=== PATIENT | male | born 1955 | race Caucasian/White ===

== ENCOUNTER 2017-08-01 18:05 | Inpatient (IN) ==
[2017-08-01 19:03] LABS: Basophils # 0.1 10*3/uL (0.0-0.2); Basophils % 0.4 % (0.0-0.8); Eosinophils % 0.1 % (0.00-10.9); Hematocrit 53.2 VOL% (42.0-52.0); Hemoglobin 17.2 GM/DL (14.0-18.0); Immature Granulocytes % 0.6 %; Immature Granulocytes Absolute 0.12 #; Lymphocytes # 1.7 10*3/uL (1.4-4.0); Lymphocytes % 8.7 % (21.2-54.2); Mean Corpuscular HGB Conc 32.3 GM/DL (32-36); Mean Corpuscular Hemoglobin 35 PG (27-34); Mean Corpuscular Volume 107.3 FL (87-102); Mean Platelet Volume 11.3 FL (9.6-12.0); Monocytes # 1.2 10*3/uL (0.11-0.8); Monocytes % 6.2 % (1.7-12.7); Neutrophils # 15.9 10*3/uL (1.4-7.4); Platelet Count 187 T/CUMM (130-400); Red Blood Count 4.96 MC/CUMM (3.8-5.5); Red Cell Distribution Width 13.1 % (9.3-17.3)
[2017-08-01 19:31] LABS: Albumin 3.8 G/DL (3.4-5.0); Bilirubin,Total 0.6 MG/DL (0.2-1.0); Calcium 9.6 MG/DL (8.5-10.1); Osmolality,Calculated 274.1 MOS/KG (273-304); Potassium 4.4 MMOL/L (3.5-5.1); Total Protein 7.7 G/DL (6.4-8.3)
[2017-08-01 20:21] LABS: Apearance,Urine CLEAR (Clear); Bacteria,Urine Occasional /HPF (Few); Bilirubin,Urine Negative (Negative); Blood, Urine Negative (Negative); Glucose,Urine (UA) Negative (Negative); Ketones,Urine Negative (Negative); Nitrite,Urine Negative (Negative); Protein,Urine Negative; RBC,Urine <1 /HPF (0-4); Urine Color Colorless (Yellow); Urine Specific Gravity 1.003 (1.001-1.035); Urine Urobilinogen < 2.0 EU/DL (0.2-1.0); WBC,Urine <1 /HPF (0-6)
[2017-08-01] MEDS ORDERED: LORazepam 2 MG/1 ML VIAL ONE (20:45)
[2017-08-01] MEDS ORDERED: FUROSEMIDE 40 MG/4 ML VIAL IV STA (20:50)
[2017-08-01] MEDS ORDERED: levETIRAcetam 500 MG/5 ML VIAL IV ONE (20:53)
[2017-08-01] MEDS ORDERED: FUROSEMIDE 100 MG/10 ML VIAL ONE (20:54)
[2017-08-01] MEDS ORDERED: PROPOFOL 1,000 MG/100 ML BOTTLE IV ONE ×2 (21:00→23:41)
[2017-08-01 21:03] LABS: Lactic Acid 3.7 MMOL/L (0.4-2.0)
[2017-08-01] MEDS ORDERED: SODIUM CHLORIDE 0.9% 1,000 ML IV STA (21:06)
[2017-08-01 21:35] LABS: ABG Base Excess -6.3 MMOL/L (-2.5-2.5); ABG HCO3 22.9 MMOL/L (20-26); ABG PCO2 58.6 MM HG (35-48); ABG PO2 227.9 MM HG (80-95); ABG TCO2 24.7 MMOL/L (23-27); Allen Test Positive; Pt O2 Delivery Device Ventilator
[2017-08-01] MEDS ORDERED: MIDAZOLAM 10 MG/2 ML VIAL ONE (21:56)
[2017-08-01 21:58] LABS: Ammonia 27 UMOL/L (11-32)
[2017-08-01] MEDS ORDERED: VECURONIUM 10 MG VIAL IV STA (22:14)
[2017-08-01] MEDS: MIDAZOLAM 100 MG in SODIUM CHLORIDE 0.9% 80 ML IV SCH (22:22)
[2017-08-01] MEDS ORDERED: PROMETHAZINE 25 MG/1 ML VIAL IM PRN (22:30)
[2017-08-01] MEDS ORDERED: ONDANSETRON 4 MG/2 ML VIAL IV PRN (22:30)
[2017-08-01] MEDS ORDERED: ALBUTEROL 2.5 MG/3 ML NEB RESP TX PRN (22:30)
[2017-08-01] MEDS: PROPOFOL 1,000 MG/100 ML BOTTLE IV SCH (22:56)
[2017-08-01] MEDS: SODIUM CHLORIDE 0.9% 1,000 ML IV SCH (23:01)
[2017-08-02] MEDS ORDERED: VECURONIUM 10 MG VIAL IV ONE (00:02)
[2017-08-02] MEDS ORDERED: ETOMIDATE 20 MG/10 ML VIAL IV ONE (00:02)
[2017-08-02 00:09] LABS: Barbiturates Screen,Urine Negative (Negative); Benzodiazepines Screen,Urine Negative (Negative); Cannabinoid Screen,Urine Negative (Negative); Opiate Screen,Urine Negative (Negative); Phencyclidine Screen,Urine Negative (Negative)
[2017-08-02] MEDS: PANTOPRAZOLE 40 MG VIAL IV SCH ×2 (00:46→23:34)
[2017-08-02] MEDS: THIAMINE INJ 100 MG, FOLIC ACID INJ 1 MG, MULTIVITAMIN INJ 10 ML in SODIUM CHLORIDE 0.9... IV SCH ×2 (02:15→23:35)
[2017-08-02] MEDS: PROPOFOL 1,000 MG/100 ML BOTTLE IV SCH ×3 (03:18→23:34)
[2017-08-02 04:42] LABS: Allen Test Positive; Pt O2 Delivery Device Ventilator
[2017-08-02 04:43] LABS: ABG Base Excess -0.1 MMOL/L (-2.5-2.5); ABG HCO3 23.4 MMOL/L (20-26); ABG PCO2 35.2 MM HG (35-48); ABG PH 7.441 (7.35-7.45); ABG PO2 118.6 MM HG (80-95); ABG TCO2 24.5 MMOL/L (23-27)
[2017-08-02 04:44] LABS: ABG Oxygen Saturation 98.5 % (95-100)
[2017-08-02 05:12] LABS: Basophils % 0.1 % (0.0-0.8); Eosinophils % 0.1 % (0.00-10.9); Hematocrit 46.5 VOL% (42.0-52.0); Hemoglobin 15.9 GM/DL (14.0-18.0); Immature Granulocytes % 0.3 %; Immature Granulocytes Absolute 0.05 #; Lymphocytes % 13.5 % (21.2-54.2); Mean Corpuscular HGB Conc 34.2 GM/DL (32-36); Mean Corpuscular Hemoglobin 35 PG (27-34); Mean Platelet Volume 11.5 FL (9.6-12.0); Monocytes # 1.4 10*3/uL (0.11-0.8); Monocytes % 9.2 % (1.7-12.7); NRBC # 0.03 10*3/uL; Neutrophils # 11.5 10*3/uL (1.4-7.4); Neutrophils % 76.8 % (38.7-73.9); Platelet Count 161 T/CUMM (130-400); Red Blood Count 4.56 MC/CUMM (3.8-5.5); Red Cell Distribution Width 13.3 % (9.3-17.3); White Blood Count 14.9 T/CUMM (4-12)
[2017-08-02 05:43] LABS: Lactic Acid 1.2 MMOL/L (0.4-2.0)
[2017-08-02 06:09] LABS: Albumin 3.5 G/DL (3.4-5.0); Calcium 8.6 MG/DL (8.5-10.1); Osmolality,Calculated 277.8 MOS/KG (273-304); Total Protein 6.3 G/DL (6.4-8.3)
[2017-08-02] MEDS: MIDAZOLAM 100 MG in SODIUM CHLORIDE 0.9% 80 ML IV SCH ×2 (11:22→23:53)
[2017-08-02] MEDS: SODIUM CHLORIDE 0.9% 1,000 ML IV SCH ×2 (15:18→20:47)
[2017-08-02] MEDS: PHENYLEPHRINE DRIP 40 MG/250 ML PREMIX IV SCH (20:47)
[2017-08-03] MEDS: PHENYLEPHRINE DRIP 40 MG/250 ML PREMIX IV SCH (02:09)
[2017-08-03] MEDS ORDERED: NOREPINEPHRINE 8 MG in SODIUM CHLORIDE 0.9% 242 ML IV SCH (03:00)
[2017-08-03] MEDS ORDERED: DOPamine 800 MG/250 ML PREMIX IV SCH (03:00)
[2017-08-03 06:08] LABS: ABG Base Excess 0.7 MMOL/L (-2.5-2.5); ABG Oxygen Saturation 97.8 % (95-100); ABG PCO2 41.6 MM HG (35-48); ABG PH 7.398 (7.35-7.45); ABG TCO2 21.8 MMOL/L (23-27)
[2017-08-03] MEDS: levETIRAcetam 500 MG TABLET PO SCH ×2 (14:37→22:02)
[2017-08-03] MEDS: SODIUM CHLORIDE 0.9% 1,000 ML IV SCH (14:38)
[2017-08-03] MEDS: LEVOFLOXACIN 750 MG TABLET PO SCH (18:14)
[2017-08-03] MEDS: ALBUTEROL 2.5 MG/3 ML NEB RESP TX SCH (20:03)
[2017-08-04] MEDS: ALBUTEROL 2.5 MG/3 ML NEB RESP TX SCH ×3 (00:43→14:37)
[2017-08-04 05:34] LABS: Basophils % 0.2 % (0.0-0.8); Eosinophils # 0.1 10*3/uL (0.0-0.87); Eosinophils % 1.3 % (0.00-10.9); Hematocrit 43.4 VOL% (42.0-52.0); Immature Granulocytes % 0.4 %; Immature Granulocytes Absolute 0.04 #; Lymphocytes # 1.6 10*3/uL (1.4-4.0); Lymphocytes % 17.3 % (21.2-54.2); Mean Corpuscular HGB Conc 32.3 GM/DL (32-36); Mean Corpuscular Hemoglobin 34 PG (27-34); Mean Corpuscular Volume 106.1 FL (87-102); Mean Platelet Volume 11.6 FL (9.6-12.0); Monocytes # 0.8 10*3/uL (0.11-0.8); Monocytes % 8.9 % (1.7-12.7); Neutrophils # 6.5 10*3/uL (1.4-7.4); Neutrophils % 71.9 % (38.7-73.9); Platelet Count 106 T/CUMM (130-400); Red Blood Count 4.09 MC/CUMM (3.8-5.5)
[2017-08-04 06:19] LABS: Calcium 8.8 MG/DL (8.5-10.1); Osmolality,Calculated 288.7 MOS/KG (273-304); Potassium 3.7 MMOL/L (3.5-5.1)
[2017-08-04] MEDS ORDERED: predniSONE 10 MG TABLET PO SCH (09:00)
[2017-08-04] MEDS ORDERED: PANTOPRAZOLE 40 MG TABLET PO SCH (09:00)
[2017-08-04] MEDS: levETIRAcetam 500 MG TABLET PO SCH (10:28)
[2017-08-04] MEDS: LEVOFLOXACIN 750 MG TABLET PO SCH (10:29)
[2017-08-04 12:09] VITALS: BP 140/76
== END 2017-08-04 13:15 | disposition home or self-care (01) | DRG 101 ==
LOC: EDUNIT# → EDBD → N.ED 18:05 → N.EDINP 22:30 → SUATTDRO 22:30 → N.CC 23:46 → N.2E 08-03 20:46
PROVIDERS: ADMIT Internal Medicine; ATTEND Internal Medicine

== ENCOUNTER 2017-08-05 03:06 | Inpatient (IN) ==
[2017-08-05] MEDS ORDERED: THIAMINE INJ 100 MG, FOLIC ACID INJ 1 MG, MULTIVITAMIN INJ 10 ML in SODIUM CHLORIDE 0.9... IV ONE (03:51)
[2017-08-05] MEDS ORDERED: LORazepam 2 MG/1 ML VIAL IV STA (03:51)
[2017-08-05 04:27] LABS: Basophils % 0.2 % (0.0-0.8); Eosinophils % 0.2 % (0.00-10.9); Hematocrit 47.9 VOL% (42.0-52.0); Hemoglobin 15.8 GM/DL (14.0-18.0); Immature Granulocytes % 0.4 %; Immature Granulocytes Absolute 0.04 #; Lymphocytes # 0.7 10*3/uL (1.4-4.0); Lymphocytes % 6.1 % (21.2-54.2); Mean Corpuscular Hemoglobin 35 PG (27-34); Mean Corpuscular Volume 105.7 FL (87-102); Mean Platelet Volume 11.5 FL (9.6-12.0); Monocytes # 0.7 10*3/uL (0.11-0.8); Monocytes % 6.2 % (1.7-12.7); Neutrophils # 9.5 10*3/uL (1.4-7.4); Neutrophils % 86.9 % (38.7-73.9); Platelet Count 139 T/CUMM (130-400); Red Blood Count 4.53 MC/CUMM (3.8-5.5)
[2017-08-05] MEDS ORDERED: levETIRAcetam 500 MG/5 ML VIAL IV ONE (04:37)
[2017-08-05] MEDS ORDERED: LORazepam 2 MG/1 ML VIAL ONE (04:37)
[2017-08-05 04:52] LABS: Alanine Aminotransferase 42 U/L (16-61); Albumin 3.4 G/DL (3.4-5.0); Alkaline Phosphatase 59 U/L (45-117); Aspartate Amino Transferase 74 U/L (0-37); Blood Urea Nitrogen 18 MG/DL (7-18); Calcium 9.7 MG/DL (8.5-10.1); Glucose 145 MG/DL (74-106); Osmolality,Calculated 292.7 MOS/KG (273-304); Potassium 4.1 MMOL/L (3.5-5.1); Sodium 145 MMOL/L (136-145); Total Protein 6.9 G/DL (6.4-8.3)
[2017-08-05 04:58] LABS: Lactic Acid 2.7 MMOL/L (0.4-2.0)
[2017-08-05] MEDS ORDERED: PIPERACILLIN/TAZOBACTAM 3,375 MG in SODIUM CHLORIDE 0.9% 100 ML IV SCH (05:30)
[2017-08-05 05:31] LABS: PT Patient Result 10.7 SECS
[2017-08-05] MEDS ORDERED: SODIUM CHLORIDE 0.9% 100 ML IV ONE (05:52)
[2017-08-05] MEDS ORDERED: PIPERACILLIN/TAZOBACTAM 3,375 MG VIAL IV ONE (05:52)
[2017-08-05 06:09] LABS: Ammonia 12 UMOL/L (11-32)
[2017-08-05] MEDS ORDERED: ONDANSETRON 4 MG/2 ML VIAL IV PRN (06:16)
[2017-08-05] MEDS ORDERED: levETIRAcetam 250 MG TABLET PO SCH (09:00)
[2017-08-05] MEDS ORDERED: SPIRONOLACTONE 25 MG TABLET PO SCH (09:00)
[2017-08-05 09:19] LABS: Lactic Acid 2.2 MMOL/L (0.4-2.0)
[2017-08-05] MEDS ORDERED: LEVOFLOXACIN 750 MG TABLET PO SCH (10:00)
[2017-08-05] MEDS ORDERED: CLINDAMYCIN 300 MG CAPSULE PO SCH (10:00)
[2017-08-05] MEDS: CARVEDILOL 12.5 MG TABLET PO SCH ×2 (10:40→20:18)
[2017-08-05] MEDS: TELMISARTAN 40 MG TABLET PO SCH (10:40)
[2017-08-05] MEDS: ENOXAPARIN 40 MG/0.4 ML SYRINGE SUBCUT SCH (10:41)
[2017-08-05] MEDS: predniSONE 10 MG TABLET PO SCH (10:41)
[2017-08-05] MEDS: PANTOPRAZOLE 40 MG TABLET PO SCH (10:41)
[2017-08-05] MEDS: LORazepam 2 MG/1 ML VIAL IV PRN ×2 (10:55→22:32)
[2017-08-05 14:58] LABS: Basophils % 0.2 % (0.0-0.8); Eosinophils % 0.1 % (0.00-10.9); Hematocrit 44.7 VOL% (42.0-52.0); Hemoglobin 14.3 GM/DL (14.0-18.0); Immature Granulocytes % 0.4 %; Immature Granulocytes Absolute 0.05 #; Lymphocytes # 0.8 10*3/uL (1.4-4.0); Lymphocytes % 6.9 % (21.2-54.2); Mean Corpuscular Hemoglobin 34 PG (27-34); Mean Corpuscular Volume 107.2 FL (87-102); Monocytes # 0.8 10*3/uL (0.11-0.8); Neutrophils % 85.4 % (38.7-73.9); Platelet Count 132 T/CUMM (130-400); Red Blood Count 4.17 MC/CUMM (3.8-5.5); White Blood Count 11.7 T/CUMM (4-12)
[2017-08-05 15:28] LABS: Albumin 3.2 G/DL (3.4-5.0); Bilirubin,Total 0.9 MG/DL (0.2-1.0); Osmolality,Calculated 293.6 MOS/KG (273-304); Potassium 3.8 MMOL/L (3.5-5.1); Total Protein 6.5 G/DL (6.4-8.3)
[2017-08-05] MEDS ORDERED: PHENYTOIN INJ 1,000 MG in SODIUM CHLORIDE 0.9% 100 ML IV ONE (16:00)
[2017-08-05] MEDS ORDERED: DEXTROSE 5% NACL 0.45% 1,000 ML IV SCH (17:30)
[2017-08-05 17:43] LABS: Allen Test Positive
[2017-08-05 17:44] LABS: ABG Base Excess 2.4 MMOL/L (-2.5-2.5); ABG HCO3 27.3 MMOL/L (20-26); ABG Oxygen Saturation 96.6 % (95-100); ABG PCO2 43.2 MM HG (35-48); ABG PH 7.418 (7.35-7.45); ABG PO2 93.7 MM HG (80-95); ABG TCO2 28.6 MMOL/L (23-27)
[2017-08-05 20:57] LABS: Apearance,Urine Slightly Hazy (Clear); Bilirubin,Urine Negative (Negative); Blood, Urine Negative (Negative); Glucose,Urine (UA) Negative (Negative); Hyaline Casts,Urine 3 /LPF (0-3); Ketones,Urine Negative (Negative); Mucus,Urine Occasional /LPF (Occasional); Nitrite,Urine Negative (Negative); Protein,Urine Negative; RBC,Urine 1 /HPF (0-4); Sperm,Urine Occasional /HPF (Negative); Urine Color Amber (Yellow); Urine Specific Gravity 1.021 (1.001-1.035); Urine Urobilinogen < 2.0 EU/DL (0.2-1.0); WBC,Urine <1 /HPF (0-6)
[2017-08-05 21:12] LABS: Barbiturates Screen,Urine Negative (Negative); Benzodiazepines Screen,Urine Positive (Negative); Cannabinoid Screen,Urine Negative (Negative); Opiate Screen,Urine Positive (Negative); Phencyclidine Screen,Urine Negative (Negative)
[2017-08-06] MEDS: PHENYTOIN 100 MG/2 ML VIAL IV SCH ×4 (00:14→23:49)
[2017-08-06 03:43] LABS: Basophils % 0.1 % (0.0-0.8); Eosinophils % 0.3 % (0.00-10.9); Hematocrit 40.5 VOL% (42.0-52.0); Hemoglobin 13.2 GM/DL (14.0-18.0); Immature Granulocytes % 0.4 %; Immature Granulocytes Absolute 0.04 #; Lymphocytes # 1.6 10*3/uL (1.4-4.0); Lymphocytes % 15.1 % (21.2-54.2); Mean Corpuscular HGB Conc 32.6 GM/DL (32-36); Mean Corpuscular Hemoglobin 35 PG (27-34); Mean Corpuscular Volume 106.3 FL (87-102); Mean Platelet Volume 11.3 FL (9.6-12.0); Monocytes # 0.9 10*3/uL (0.11-0.8); Monocytes % 8.7 % (1.7-12.7); Neutrophils # 7.9 10*3/uL (1.4-7.4); Neutrophils % 75.4 % (38.7-73.9); Platelet Count 135 T/CUMM (130-400); Red Blood Count 3.81 MC/CUMM (3.8-5.5); Red Cell Distribution Width 13.1 % (9.3-17.3); White Blood Count 10.4 T/CUMM (4-12)
[2017-08-06] MEDS: LORazepam 2 MG/1 ML VIAL IV PRN ×4 (03:46→21:31)
[2017-08-06 04:21] LABS: Bilirubin,Total 1.2 MG/DL (0.2-1.0); Calcium 8.9 MG/DL (8.5-10.1); Osmolality,Calculated 289.7 MOS/KG (273-304); Potassium 3.8 MMOL/L (3.5-5.1)
[2017-08-06] MEDS: CARVEDILOL 12.5 MG TABLET PO SCH (08:25)
[2017-08-06] MEDS: PANTOPRAZOLE 40 MG TABLET PO SCH (08:25)
[2017-08-06] MEDS: TELMISARTAN 40 MG TABLET PO SCH (08:25)
[2017-08-06] MEDS: predniSONE 10 MG TABLET PO SCH (08:26)
[2017-08-06] MEDS ORDERED: SODIUM CHLORIDE 0.9% IV ONE (13:00)
[2017-08-06] MEDS ORDERED: LACOSAMIDE IV ONE (13:00)
[2017-08-06 14:46] LABS: Glucose,CSF 71 MG/DL (40-70)
[2017-08-06] MEDS ORDERED: PHENYTOIN INJ 1,000 MG in SODIUM CHLORIDE 0.9% 100 ML IV ONE (15:30)
[2017-08-06] MEDS: THIAMINE 100 MG TABLET PO SCH (15:47)
[2017-08-06] MEDS: CARVEDILOL 6.25 MG TABLET PO SCH ×2 (15:47→20:08)
[2017-08-06] MEDS: FOLIC ACID 1 MG TABLET PO SCH (15:47)
[2017-08-06 15:55] LABS: Appearance,CSF Clear; Lymphocytes,CSF 100 %; Red Blood Cell,CSF 15 C/CUMM; White Blood Cell,CSF 2 C/CUMM
[2017-08-06] MEDS: LACOSAMIDE INJ 150 MG in SODIUM CHLORIDE 0.9% 50 ML IV SCH (21:55)
[2017-08-07] MEDS: LORazepam 2 MG/1 ML VIAL IV PRN ×3 (03:37→23:07)
[2017-08-07] MEDS: THIAMINE 100 MG TABLET PO SCH (08:23)
[2017-08-07] MEDS: FOLIC ACID 1 MG TABLET PO SCH (08:24)
[2017-08-07] MEDS: PHENYTOIN 100 MG/2 ML VIAL IV SCH ×2 (08:24→16:05)
[2017-08-07] MEDS: TELMISARTAN 40 MG TABLET PO SCH (08:24)
[2017-08-07] MEDS: predniSONE 10 MG TABLET PO SCH (08:24)
[2017-08-07] MEDS: PANTOPRAZOLE 40 MG TABLET PO SCH (08:24)
[2017-08-07] MEDS: CARVEDILOL 6.25 MG TABLET PO SCH (08:24)
[2017-08-07] MEDS ORDERED: GLUCAGON 1 MG VIAL IM PRN (08:45)
[2017-08-07] MEDS ORDERED: DEXTROSE 50% 25 GM/50 ML VIAL IV PRN (08:45)
[2017-08-07] MEDS: LACOSAMIDE INJ 150 MG in SODIUM CHLORIDE 0.9% 50 ML IV SCH ×2 (10:02→21:42)
[2017-08-07] MEDS: INSULIN LISPRO 100 UNIT/ML SUBCUT SCH ×3 (14:16→21:41)
[2017-08-07] MEDS ORDERED: CARVEDILOL 6.25 MG TABLET PO SCH (15:32)
[2017-08-07] MEDS: CARVEDILOL 12.5 MG TABLET PO SCH (21:42)
[2017-08-08] MEDS: PHENYTOIN 100 MG/2 ML VIAL IV SCH ×3 (01:01→16:50)
[2017-08-08 06:29] LABS: Basophils % 0.3 % (0.0-0.8); Eosinophils # 0.3 10*3/uL (0.0-0.87); Eosinophils % 2.9 % (0.00-10.9); Hematocrit 42.9 VOL% (42.0-52.0); Hemoglobin 14.5 GM/DL (14.0-18.0); Immature Granulocytes % 0.4 %; Immature Granulocytes Absolute 0.04 #; Lymphocytes # 1.6 10*3/uL (1.4-4.0); Lymphocytes % 16.5 % (21.2-54.2); Mean Corpuscular HGB Conc 33.8 GM/DL (32-36); Mean Corpuscular Hemoglobin 35 PG (27-34); Mean Corpuscular Volume 103.9 FL (87-102); Mean Platelet Volume 11.8 FL (9.6-12.0); Monocytes # 0.7 10*3/uL (0.11-0.8); Monocytes % 7.4 % (1.7-12.7); Neutrophils # 6.9 10*3/uL (1.4-7.4); Neutrophils % 72.5 % (38.7-73.9); Platelet Count 122 T/CUMM (130-400); Red Blood Count 4.13 MC/CUMM (3.8-5.5); Red Cell Distribution Width 12.6 % (9.3-17.3); White Blood Count 9.6 T/CUMM (4-12)
[2017-08-08] MEDS: INSULIN LISPRO 100 UNIT/ML SUBCUT SCH ×4 (07:36→21:38)
[2017-08-08] MEDS: CARVEDILOL 12.5 MG TABLET PO SCH ×2 (08:28→21:37)
[2017-08-08] MEDS: THIAMINE 100 MG TABLET PO SCH (08:28)
[2017-08-08] MEDS: predniSONE 10 MG TABLET PO SCH (08:28)
[2017-08-08] MEDS: PANTOPRAZOLE 40 MG TABLET PO SCH (08:28)
[2017-08-08] MEDS: FOLIC ACID 1 MG TABLET PO SCH (08:28)
[2017-08-08] MEDS: TELMISARTAN 40 MG TABLET PO SCH (08:28)
[2017-08-08] MEDS: ENOXAPARIN 40 MG/0.4 ML SYRINGE SUBCUT SCH (08:29)
[2017-08-08] MEDS: LACOSAMIDE INJ 150 MG in SODIUM CHLORIDE 0.9% 50 ML IV SCH ×2 (10:51→22:51)
[2017-08-08] MEDS: chlordiazePOXIDE 10 MG CAPSULE PO SCH ×3 (10:51→21:37)
[2017-08-08] MEDS ORDERED: PHENYTOIN INJ 500 MG in SODIUM CHLORIDE 0.9% 100 ML IV ONE (11:00)
[2017-08-08 11:39] LABS: VDRL Spinal Fluid Negative (Negative)
[2017-08-09] MEDS: PHENYTOIN 100 MG/2 ML VIAL IV SCH ×4 (01:28→23:44)
[2017-08-09] MEDS: LORazepam 2 MG/1 ML VIAL IV PRN (07:02)
[2017-08-09] MEDS: INSULIN LISPRO 100 UNIT/ML SUBCUT SCH ×4 (07:54→20:25)
[2017-08-09] MEDS: FOLIC ACID 1 MG TABLET PO SCH (08:27)
[2017-08-09] MEDS: chlordiazePOXIDE 10 MG CAPSULE PO SCH ×3 (08:27→20:39)
[2017-08-09] MEDS: ENOXAPARIN 40 MG/0.4 ML SYRINGE SUBCUT SCH (08:27)
[2017-08-09] MEDS: THIAMINE 100 MG TABLET PO SCH (08:27)
[2017-08-09] MEDS: TELMISARTAN 40 MG TABLET PO SCH (08:27)
[2017-08-09] MEDS: CARVEDILOL 12.5 MG TABLET PO SCH ×2 (08:39→20:39)
[2017-08-09] MEDS: PANTOPRAZOLE 40 MG TABLET PO SCH (08:39)
[2017-08-09] MEDS: predniSONE 10 MG TABLET PO SCH (08:39)
[2017-08-09] MEDS: LACOSAMIDE INJ 150 MG in SODIUM CHLORIDE 0.9% 50 ML IV SCH ×3 (09:00→22:26)
[2017-08-09] MEDS ORDERED: ALBUTEROL/IPRATROPIUM 3 ML NEB RESP TX PRN (09:49)
[2017-08-09] MEDS ORDERED: amLODIPine 5 MG TABLET PO ONE (12:03)
[2017-08-09] MEDS: ALBUTEROL/IPRATROPIUM 3 ML NEB RESP TX SCH ×2 (12:06→19:20)
[2017-08-09 13:36] LABS: M. Tuberculosis PCR Result Negative (Negative); M. Tuberculosis PCR Source CSF
[2017-08-09] MEDS: oxyCODONE/ACETAMINOPHEN 5-325 MG TABLET PO PRN (19:42)
[2017-08-10] MEDS: ALBUTEROL/IPRATROPIUM 3 ML NEB RESP TX SCH ×4 (00:18→19:13)
[2017-08-10] MEDS: oxyCODONE/ACETAMINOPHEN 5-325 MG TABLET PO PRN ×3 (05:27→20:48)
[2017-08-10] MEDS: INSULIN LISPRO 100 UNIT/ML SUBCUT SCH ×4 (07:05→20:57)
[2017-08-10] MEDS: predniSONE 10 MG TABLET PO SCH (08:33)
[2017-08-10] MEDS: PANTOPRAZOLE 40 MG TABLET PO SCH (08:33)
[2017-08-10] MEDS: FOLIC ACID 1 MG TABLET PO SCH (08:33)
[2017-08-10] MEDS: CARVEDILOL 12.5 MG TABLET PO SCH ×2 (08:33→20:46)
[2017-08-10] MEDS: ENOXAPARIN 40 MG/0.4 ML SYRINGE SUBCUT SCH (08:33)
[2017-08-10] MEDS: THIAMINE 100 MG TABLET PO SCH (08:33)
[2017-08-10] MEDS: chlordiazePOXIDE 10 MG CAPSULE PO SCH ×3 (08:33→20:56)
[2017-08-10] MEDS: PHENYTOIN 100 MG/2 ML VIAL IV SCH (08:34)
[2017-08-10] MEDS: TELMISARTAN 40 MG TABLET PO SCH (08:34)
[2017-08-10] MEDS: LACOSAMIDE INJ 150 MG in SODIUM CHLORIDE 0.9% 50 ML IV SCH (09:17)
[2017-08-10] MEDS: LORazepam 2 MG/1 ML VIAL IV PRN (20:00)
[2017-08-10] MEDS: PHENYTOIN ER 100 MG CAPSULE PO SCH (20:44)
[2017-08-10] MEDS: levETIRAcetam 500 MG TABLET PO SCH (20:45)
[2017-08-10] MEDS: LACOSAMIDE 50 MG TABLET PO SCH (20:46)
[2017-08-10] MEDS: SODIUM CHLORIDE 0.65% NASAL SPRAY 45 ML BOTTLE BOTH NARES PRN (22:11)
[2017-08-11] MEDS: ALBUTEROL/IPRATROPIUM 3 ML NEB RESP TX SCH ×4 (01:25→21:16)
[2017-08-11] MEDS: SODIUM CHLORIDE 0.65% NASAL SPRAY 45 ML BOTTLE BOTH NARES PRN ×2 (05:44→08:34)
[2017-08-11] MEDS: INSULIN LISPRO 100 UNIT/ML SUBCUT SCH ×4 (08:33→21:21)
[2017-08-11] MEDS: FLUTICASONE 50 MCG NASAL SPRAY 16 GM BOTTLE BOTH NARES SCH (08:34)
[2017-08-11] MEDS: oxyCODONE/ACETAMINOPHEN 5-325 MG TABLET PO PRN ×3 (08:34→21:19)
[2017-08-11] MEDS: FOLIC ACID 1 MG TABLET PO SCH (08:34)
[2017-08-11] MEDS: levETIRAcetam 500 MG TABLET PO SCH ×2 (08:34→20:41)
[2017-08-11] MEDS: ENOXAPARIN 40 MG/0.4 ML SYRINGE SUBCUT SCH (08:34)
[2017-08-11] MEDS: LACOSAMIDE 50 MG TABLET PO SCH ×2 (08:35→20:43)
[2017-08-11] MEDS: PANTOPRAZOLE 40 MG TABLET PO SCH (08:35)
[2017-08-11] MEDS: predniSONE 10 MG TABLET PO SCH (08:35)
[2017-08-11] MEDS: TELMISARTAN 40 MG TABLET PO SCH (08:35)
[2017-08-11] MEDS: PHENYTOIN ER 100 MG CAPSULE PO SCH ×2 (08:35→20:44)
[2017-08-11] MEDS: CARVEDILOL 12.5 MG TABLET PO SCH ×2 (08:35→20:41)
[2017-08-11] MEDS: THIAMINE 100 MG TABLET PO SCH (08:35)
[2017-08-11] MEDS: chlordiazePOXIDE 10 MG CAPSULE PO SCH ×3 (09:52→20:41)
[2017-08-11] MEDS: CEFEPIME 2,000 MG in SYRINGE 1 EACH IV SCH (16:47)
[2017-08-11] MEDS: LORazepam 2 MG/1 ML VIAL IV PRN (20:45)
[2017-08-12] MEDS: CEFEPIME 2,000 MG in SYRINGE 1 EACH IV SCH ×2 (00:13→08:31)
[2017-08-12] MEDS: ALBUTEROL/IPRATROPIUM 3 ML NEB RESP TX SCH ×3 (01:24→13:30)
[2017-08-12] MEDS: oxyCODONE/ACETAMINOPHEN 5-325 MG TABLET PO PRN ×2 (04:51→11:29)
[2017-08-12 05:30] LABS: Basophils % 0.2 % (0.0-0.8); Eosinophils # 0.4 10*3/uL (0.0-0.87); Eosinophils % 3.5 % (0.00-10.9); Hematocrit 44.3 VOL% (42.0-52.0); Immature Granulocytes % 0.4 %; Immature Granulocytes Absolute 0.05 #; Lymphocytes # 1.4 10*3/uL (1.4-4.0); Lymphocytes % 12.3 % (21.2-54.2); Mean Corpuscular HGB Conc 33.9 GM/DL (32-36); Mean Corpuscular Hemoglobin 35 PG (27-34); Mean Corpuscular Volume 101.8 FL (87-102); Mean Platelet Volume 12.6 FL (9.6-12.0); Monocytes # 0.9 10*3/uL (0.11-0.8); Monocytes % 7.5 % (1.7-12.7); Neutrophils # 8.8 10*3/uL (1.4-7.4); Neutrophils % 76.1 % (38.7-73.9); Platelet Count 136 T/CUMM (130-400); Red Blood Count 4.35 MC/CUMM (3.8-5.5); Red Cell Distribution Width 12.4 % (9.3-17.3); White Blood Count 11.6 T/CUMM (4-12)
[2017-08-12 05:38] LABS: Calcium 8.8 MG/DL (8.5-10.1); Potassium 3.5 MMOL/L (3.5-5.1)
[2017-08-12] MEDS: guaiFENesin 200 MG/10 ML UDCUP PO PRN ×2 (05:46→09:16)
[2017-08-12] MEDS: LORazepam 2 MG/1 ML VIAL IV PRN (05:49)
[2017-08-12] MEDS: INSULIN LISPRO 100 UNIT/ML SUBCUT SCH ×3 (08:05→15:45)
[2017-08-12] MEDS: TELMISARTAN 40 MG TABLET PO SCH (08:28)
[2017-08-12] MEDS: levETIRAcetam 500 MG TABLET PO SCH (08:28)
[2017-08-12] MEDS: THIAMINE 100 MG TABLET PO SCH (08:28)
[2017-08-12] MEDS: PHENYTOIN ER 100 MG CAPSULE PO SCH (08:29)
[2017-08-12] MEDS: CARVEDILOL 12.5 MG TABLET PO SCH (08:29)
[2017-08-12] MEDS: FOLIC ACID 1 MG TABLET PO SCH (08:29)
[2017-08-12] MEDS: LACOSAMIDE 50 MG TABLET PO SCH (08:30)
[2017-08-12] MEDS: PANTOPRAZOLE 40 MG TABLET PO SCH (08:30)
[2017-08-12] MEDS: ENOXAPARIN 40 MG/0.4 ML SYRINGE SUBCUT SCH (08:31)
[2017-08-12] MEDS: FLUTICASONE 50 MCG NASAL SPRAY 16 GM BOTTLE BOTH NARES SCH (08:40)
[2017-08-12] MEDS: chlordiazePOXIDE 10 MG CAPSULE PO SCH ×2 (09:16→15:44)
[2017-08-12] MEDS: predniSONE 10 MG TABLET PO SCH (09:16)
[2017-08-12] MEDS ORDERED: DORNASE ALFA 2.5 MG/2.5 ML VIAL RESP TX SCH (10:00)
[2017-08-12] MEDS ORDERED: BENZONATATE 100 MG CAPSULE PO SCH (15:00)
[2017-08-12 16:26] VITALS: BP 123/85
== END 2017-08-12 16:48 | DRG 101 ==
LOC: EDBD → EDUNIT# → N.EDINP 03:06 → N.ED 03:06 → N.CC 06:41 → N.TELEN 06:41 → N.CC 08:20 → SUATTDRO 12:45 → N.2E 08-10 15:33
PROVIDERS: ADMIT Internal Medicine; ATTEND Internal Medicine Geriatric Medicine